=== PATIENT | female | born 2000 | race African-American/Black ===

== ENCOUNTER 2021-10-24 14:24 | Outpatient (CLI) | payer BC ==
[2021-10-25 15:47] LABS: SARS-CoV-2 PCR by NAA Not Detected (NotDetected)
== END 2021-10-24 14:25 | disposition home or self-care (01) ==
LOC: CSHLAB 14:24
PROVIDERS: ATTEND Obstetrics & Gynecology
DX: Z20.822 Contact with and (suspected) exposure to COVID-19 (principal)
CPT/HCPCS: U0003; U0005

== ENCOUNTER 2021-10-26 08:13 | Day surgery (SDC) | payer BC ==
[2021-10-26] MEDS ORDERED: Iron Sucrose Complex 500 MG in Sodium Chloride 0.9% 250 ML 250 ML IVPB SCH (08:45)
[2021-10-26] MEDS ORDERED: hydrALAZINE 20 MG/ML VIAL SLOW IVP PRN (08:49)
[2021-10-26] MEDS ORDERED: Acetaminophen 500 MG TAB PO SCH (09:00)
[2021-10-26] MEDS ORDERED: diphenhydrAMINE 50 MG/ML VIAL IVP SCH (09:00)
[2021-10-26 09:02] VITALS: BMI 34.0
[2021-10-26] MEDS ORDERED: Sodium Chloride 0.9% 1,000 ML IV SCH (10:15)
== END 2021-10-26 15:00 | disposition home or self-care (01) ==
LOC: CSHLD/OP 08:13
PROVIDERS: ATTEND Emergency Medicine
DX: O99.013 Anemia complicating pregnancy, third trimester (principal); D50.9 Iron deficiency anemia, unspecified; O99.343 Other mental disorders complicating pregnancy, third trimester; F32.A Depression, unspecified; O34.211 Maternal care for low transverse scar from previous cesarean delivery; Z3A.34 34 weeks gestation of pregnancy
CPT/HCPCS: J1200; J1756; J7050

== ENCOUNTER 2021-11-27 09:18 | Outpatient (CLI) | payer BC ==
[2021-11-27 12:49] LABS: Hemoglobin 11.3 g/dL (12.0-15.5); Mean Corpuscular HGB CONC 32.8 g/dL (32.0-36.0); Mean Corpuscular Hemoglobin 26.2 pg (27.0-33.0); Mean Corpuscular Volume 79.8 fl (81.6-98.3); Mean Platelet Volume 9.3 fl (7.4-10.4); Platelet Count 287 10x3/uL (150-450); RBC Distribution Width 17.7 % (11.5-14.5); Red Blood Cell (RBC) Count 4.31 10x6/uL (3.90-5.03); White Blood Cell (WBC) Count 7.4 10x3/uL (3.5-10.5)
[2021-11-27 13:20] LABS: Hep B Surf Ag Non-Reactive S/CO (NonReactive)
[2021-11-27 13:21] LABS: Syphilis Antibody Nonreactive (Nonreactive); Syphilis Antibody Index 0.05 S/CO (<1.00 Non-Reactive)
[2021-11-27 14:03] LABS: HBSAg Index 0.17 S/CO (0-0.99)
[2021-11-27 20:43] LABS: SARS-CoV-2 PCR by NAA Not Detected (NotDetected)
== END 2021-11-27 09:19 | disposition home or self-care (01) ==
LOC: CSHLAB 09:18
PROVIDERS: ATTEND Family Medicine
DX: Z01.812 Encounter for preprocedural laboratory examination (principal); Z20.822 Contact with and (suspected) exposure to COVID-19
CPT/HCPCS: 85027; 86780; 87340; U0003; U0005

== ENCOUNTER 2021-12-01 07:37 | Inpatient (IN) | payer BC, MEDICAID ==
[2021-12-01] MEDS ORDERED: Ondansetron PF 4 MG/2 ML Vial IVP PRN ×3 (08:08→15:17)
[2021-12-01] MEDS ORDERED: Famotidine/PF 20 mg/2ml Vial SLOW IVP PRN (08:08)
[2021-12-01] MEDS ORDERED: Promethazine HCl 25 MG/ML VIAL IM PRN ×3 (08:08→15:17)
[2021-12-01] MEDS ORDERED: Bicitra 30 ML UDCUP PO PRN (08:08)
[2021-12-01] MEDS ORDERED: hydrALAZINE 20 MG/ML VIAL SLOW IVP PRN ×2 (08:08→15:17)
[2021-12-01] MEDS ORDERED: ceFAZolin 2 GM/Dextrose 50 ML 2 GM in Premix Bag 1 BAG IVPB SCH (08:15)
[2021-12-01] MEDS: Lactated Ringer's 1,000 ML IV SCH ×2 (08:35→08:54)
[2021-12-01 08:37] VITALS: BMI 34.3
[2021-12-01] MEDS ORDERED: Famotidine/PF 20 mg/2ml Vial ONE (08:49)
[2021-12-01] MEDS ORDERED: Ondansetron PF 4 MG/2 ML Vial ONE (09:58)
[2021-12-01] MEDS ORDERED: Morphine PF 10 MG/10 ML VIAL ONE (09:58)
[2021-12-01] MEDS ORDERED: Oxytocin 10 UNITS/ML VIAL ONE (09:59)
[2021-12-01] MEDS ORDERED: Dexamethasone 4 mg/ml Vial ONE (10:27)
[2021-12-01] MEDS ORDERED: NS w/ Oxytocin 30 units 500 ML ONE (13:03)
[2021-12-01] MEDS ORDERED: Promethazine HCl 25 MG SUPP PR PRN (15:13)
[2021-12-01] MEDS ORDERED: Naloxone HCl 0.4 mg/ml Vial IVP PRN ×2 (15:13)
[2021-12-01] MEDS ORDERED: Ondansetron HCl/PF 4 MG/2 ML Vial IVP PRN (15:13)
[2021-12-01] MEDS ORDERED: diphenhydrAMINE 50 MG/ML VIAL IVP PRN (15:13)
[2021-12-01] MEDS ORDERED: Moisturizing Cream (Eucerin) 113 GM JAR TOP PRN (15:13)
[2021-12-01] MEDS ORDERED: Naloxone HCl 0.4 mg/ml Vial IV PRN (15:13)
[2021-12-01] MEDS ORDERED: Meperidine HCl/PF 25 MG/ML VIAL SLOW IVP PRN (15:13)
[2021-12-01] MEDS ORDERED: Fentanyl 100 MCG/2 ML VIAL SLOW IVP PRN (15:13)
[2021-12-01] MEDS ORDERED: Ketorolac Tromethamine 30 MG/ML VIAL IVP SCH (15:15)
[2021-12-01] MEDS ORDERED: Communication Order-Pharmacy FS SCH (15:15)
[2021-12-01] MEDS ORDERED: Methylergonovine 0.2 MG/ML VIAL IM PRN (15:17)
[2021-12-01] MEDS ORDERED: Acetaminophen 325 MG TAB PO PRN (15:17)
[2021-12-01] MEDS ORDERED: diphenhydrAMINE 25 MG CAP PO PRN (15:17)
[2021-12-01] MEDS ORDERED: Misoprostol 200 MCG TAB PR PRN (15:17)
[2021-12-01] MEDS ORDERED: Lanolin Ointment 7 GM TUBE TOP PRN (15:17)
[2021-12-01] MEDS ORDERED: Bisacodyl 10 MG SUPP PR PRN (15:17)
[2021-12-01] MEDS ORDERED: NS w/ Oxytocin 30 units 500 ML IV SCH (15:17)
[2021-12-01] MEDS ORDERED: Simethicone Chewable 80 MG TAB PO PRN (15:17)
[2021-12-01] MEDS ORDERED: Boostrix 0.5 ML (Tdap) VIAL IM ONE (15:17)
[2021-12-01] MEDS: Ketorolac Tromethamine 30 MG/ML VIAL IVP PRN (16:19)
[2021-12-02] MEDS: Ketorolac Tromethamine 30 MG/ML VIAL IVP PRN ×2 (01:23→07:44)
[2021-12-02] MEDS: Docusate 100 MG CAP PO SCH ×3 (01:28→22:04)
[2021-12-02] MEDS: Ferrous Sulfate 325 MG TAB PO SCH ×2 (01:28→10:12)
[2021-12-02 03:46] LABS: #Eosinphils 0.1 10x3/uL (0.0-0.5); #Monocytes 2.1 10x3/uL (0.0-1.1); #Neutrophils 12.3 10x3/uL (1.5-8.4); %Basophils 0.2 % (0.0-2.0); %Eosinophils 0.4 % (0.0-6.0); %Lymphocytes 13.1 % (18.0-47.0); %Monocytes 12.3 % (0.0-10.0); %Neutrophils 73.7 % (40.0-75.0); Hemoglobin 10.6 g/dL (12.0-15.5); Mean Corpuscular HGB CONC 32.9 g/dL (32.0-36.0); Mean Corpuscular Hemoglobin 26.1 pg (27.0-33.0); Mean Corpuscular Volume 79.3 fl (81.6-98.3); Mean Platelet Volume 9.1 fl (7.4-10.4); Platelet Count 302 10x3/uL (150-450); RBC Distribution Width 17.3 % (11.5-14.5); Red Blood Cell (RBC) Count 4.06 10x6/uL (3.90-5.03); White Blood Cell (WBC) Count 16.7 10x3/uL (3.5-10.5)
[2021-12-02] MEDS: HYDROcodone/Acetaminophen 5/325 mg Tablet PO PRN ×4 (06:10→18:13)
[2021-12-02] MEDS: Prenatal Vitamin 1 TAB PO SCH (07:50)
[2021-12-02] MEDS: guaiFENesin ER 600 MG TAB PO SCH ×2 (10:16→22:08)
[2021-12-02] MEDS: Ibuprofen 800 MG TAB PO SCH ×2 (14:18→22:04)
[2021-12-03] MEDS: Ibuprofen 800 MG TAB PO SCH ×2 (05:30→14:16)
[2021-12-03] MEDS: HYDROcodone/Acetaminophen 5/325 mg Tablet PO PRN ×2 (06:58→11:32)
[2021-12-03 08:14] VITALS: BP 118/76; TEMP 98.3
[2021-12-03] MEDS: Ferrous Sulfate 325 MG TAB PO SCH (08:19)
[2021-12-03] MEDS: Docusate 100 MG CAP PO SCH (09:05)
[2021-12-03] MEDS: guaiFENesin ER 600 MG TAB PO SCH (09:05)
[2021-12-03] MEDS: Prenatal Vitamin 1 TAB PO SCH (09:05)
== END 2021-12-03 17:40 | disposition home or self-care (01) | DRG 788 ==
LOC: CSHLD 07:37 → CSHPP 14:09
PROVIDERS: ADMIT Family Medicine; ATTEND Family Medicine
PROC: 10D00Z1 Extraction of Products of Conception, Low, Open Approach (ICD-10-PCS; principal; 2021-12-01)
DX: O34.211 Maternal care for low transverse scar from previous cesarean delivery (principal); O99.72 Diseases of the skin and subcutaneous tissue complicating childbirth; L91.0 Hypertrophic scar; O99.62 Diseases of the digestive system complicating childbirth; K21.9 Gastro-esophageal reflux disease without esophagitis; O99.214 Obesity complicating childbirth; E66.9 Obesity, unspecified; O40.3XX0 Polyhydramnios, third trimester, not applicable or unspecified; O99.02 Anemia complicating childbirth; D64.9 Anemia, unspecified; Z3A.39 39 weeks gestation of pregnancy; Z37.0 Single live birth
CPT/HCPCS: 51702; 86850; 86900; 86901; J0690; J1100; J1885; J2274; J2405; J2590; J7120; S0028

== ENCOUNTER 2023-02-02 15:46 | Emergency (ER) | payer OTHER ==
[2023-02-02 16:31] LABS: #Basophils 0.1 10x3/uL (0.0-0.2); #Eosinphils 0.5 10x3/uL (0.0-0.5); #Monocytes 1.2 10x3/uL (0.0-1.1); #Neutrophils 9.1 10x3/uL (1.5-8.4); %Basophils 0.6 % (0.0-2.0); %Eosinophils 3.4 % (0.0-6.0); %Lymphocytes 19.1 % (18.0-47.0); %Monocytes 8.9 % (0.0-10.0); %Neutrophils 67.8 % (40.0-75.0); Hematocrit 37.7 % (34.9-44.5); Hemoglobin 12.8 g/dL (12.0-15.5); Mean Corpuscular Hemoglobin 27.9 pg (27.0-33.0); Mean Corpuscular Volume 82.3 fl (81.6-98.3); Mean Platelet Volume 9.2 fl (7.4-10.4); Platelet Count 273 10x3/uL (150-450); RBC Distribution Width 14.6 % (11.5-14.5); Red Blood Cell (RBC) Count 4.58 10x6/uL (3.90-5.03); White Blood Cell (WBC) Count 13.4 10x3/uL (3.5-10.5)
[2023-02-02 16:44] LABS: ALT (SGPT) 8 U/L (8-55); AST (SGOT) 17 U/L (5-34); Alkaline Phosphatase 63 U/L (40-110); Anion Gap 16 mmol/L (10-20); BUN (Urea Nitrogen) 6 mg/dL (7.0-18.7); Bilirubin, Total 0.5 mg/dL (0.2-1.2); Calc. Creatinine Clearance 0 mL/min (70-130); Carbon Dioxide 19 mmol/L (22-29); Chloride 105 mmol/L (98-107); Estimated GFR 124; Globulin 2.9 g/dL (2.4-3.5); Glucose 82 mg/dL (70-105); Magnesium 1.8 mg/dL (1.6-2.6); Potassium 3.9 mmol/L (3.5-5.1); Protein, Total 6.9 g/dL (6.0-8.3); Sodium 136 mmol/L (136-145)
[2023-02-02 17:36] LABS: Bilirubin Neg (Negative); Blood, Urine Negative (Negative); Clarity Clear (Clear); Glucose, Urine (Dipstick) Normal (Negative); Ketone, Urine 150 mg/dL (Negative); Leukocyte 25 (Negative); Nitrite Negative (Negative); Protein, Urine (Dipstick) 30 mg/dl (Neg-Trace); Specific Gravity, Urine 1.025 (1.005-1.030)
[2023-02-02 18:06] LABS: Bacteria/HPF 1+ HPF (None Seen); CAUTI Indications for Culture Pregnancy; RBC/HPF None Seen HPF (0-3); WBC/HPF 0-3 HPF (0-3)
[2023-02-02 18:07] LABS: Mucous/LPF 4+ LPF (<2+)
[2023-02-02 18:08] LABS: Urine Culture Reflex Yes Yes
[2023-02-02] MEDS ORDERED: Ondansetron PF 4 MG/2 ML Vial ONE (20:48)
[2023-02-02] MEDS ORDERED: Acetaminophen 500 MG TAB ONE (21:14)
== END 2023-02-02 22:26 | disposition home or self-care (01) ==
LOC: CSHERS 15:46
DX: O21.9 Vomiting of pregnancy, unspecified (principal); Z3A.10 10 weeks gestation of pregnancy
CPT/HCPCS: 80053; 81001; 82010; 83735; 85025; 87086; 96361; 96374; J2405

== ENCOUNTER 2023-02-23 01:12 | Emergency (ER) | payer OTHER ==
[2023-02-23] MEDS ORDERED: Ondansetron PF 4 MG/2 ML Vial ONE (02:35)
[2023-02-23 02:58] LABS: #Basophils 0.1 10x3/uL (0.0-0.2); #Eosinphils 0.3 10x3/uL (0.0-0.5); %Basophils 0.5 % (0.0-2.0); %Lymphocytes 25.5 % (18.0-47.0); %Monocytes 7.8 % (0.0-10.0); Hematocrit 41.2 % (34.9-44.5); Mean Corpuscular Hemoglobin 28.1 pg (27.0-33.0); Mean Corpuscular Volume 82.6 fl (81.6-98.3); Mean Platelet Volume 9.2 fl (7.4-10.4); Platelet Count 297 10x3/uL (150-450); RBC Distribution Width 14.4 % (11.5-14.5); Red Blood Cell (RBC) Count 4.99 10x6/uL (3.90-5.03); White Blood Cell (WBC) Count 12.5 10x3/uL (3.5-10.5)
[2023-02-23 03:12] LABS: ALT (SGPT) 11 U/L (8-55); AST (SGOT) 15 U/L (5-34); Albumin 4.1 g/dL (3.5-5.0); Alkaline Phosphatase 64 U/L (40-110); Anion Gap 14 mmol/L (10-20); BUN (Urea Nitrogen) 5 mg/dL (7.0-18.7); Bilirubin, Total 0.5 mg/dL (0.2-1.2); Calc. Creatinine Clearance 0 mL/min (70-130); Calcium 9.5 mg/dL (7.8-10.44); Carbon Dioxide 21 mmol/L (22-29); Chloride 104 mmol/L (98-107); Estimated GFR 122; Globulin 3.4 g/dL (2.4-3.5); Glucose 82 mg/dL (70-105); Lipase 11 U/L (8-78); Potassium 3.4 mmol/L (3.5-5.1); Protein, Total 7.5 g/dL (6.0-8.3); Sodium 136 mmol/L (136-145)
[2023-02-23 03:38] LABS: Bilirubin Neg (Negative); Blood, Urine 10 (Negative); Clarity Slightly Cloudy (Clear); Glucose, Urine (Dipstick) Normal (Negative); Ketone, Urine 150 mg/dL (Negative); Leukocyte 100 (Negative); Nitrite Negative (Negative); Protein, Urine (Dipstick) 30 mg/dl (Neg-Trace); Specific Gravity, Urine 1.025 (1.005-1.030)
[2023-02-23 03:48] LABS: Bacteria/HPF Rare-Few HPF (None Seen); CAUTI Indications for Culture Pregnancy; Mucous/LPF 1+ LPF (<2+); RBC/HPF 0-3 HPF (0-3); Squamous Epithelial 0-3 HPF (0-3)
[2023-02-23 03:49] LABS: Urine Culture Reflex Yes Yes
[2023-02-23] MEDS ORDERED: Acetaminophen 500 MG TAB ONE (04:23)
== END 2023-02-23 05:10 | disposition home or self-care (01) ==
LOC: CSHERS 01:12
DX: O21.9 Vomiting of pregnancy, unspecified (principal); Z3A.13 13 weeks gestation of pregnancy
CPT/HCPCS: 80053; 81001; 83690; 85025; 87086; 96374; J2405

== ENCOUNTER 2023-04-26 18:11 | Observation (INO) | payer BC, OTHER ==
[2023-04-26 20:21] VITALS: BMI 33.5
[2023-04-26] MEDS ORDERED: Promethazine HCl 25 MG/ML VIAL IM PRN (21:19)
[2023-04-26] MEDS ORDERED: hydrALAZINE 20 MG/ML VIAL SLOW IVP PRN (21:19)
[2023-04-26] MEDS ORDERED: Ondansetron PF 4 MG/2 ML Vial IVP PRN (21:19)
[2023-04-26] MEDS: Dextrose 5%-Lactated Ringers 1,000 ML IV SCH (22:10)
[2023-04-27 01:35] LABS: Bilirubin Neg (Negative); Blood, Urine Negative (Negative); Clarity Clear (Clear); Glucose, Urine (Dipstick) Normal (Negative); Ketone, Urine Negative (Negative); Leukocyte 25 (Negative); Nitrite Negative (Negative); Protein, Urine (Dipstick) 15 mg/dl (Neg-Trace)
[2023-04-27 01:52] LABS: Bacteria/HPF Rare-Few HPF (None Seen); RBC/HPF None Seen HPF (0-3); Squamous Epithelial 0-3 HPF (0-3)
[2023-04-27 03:48] LABS: #Basophils 0.1 10x3/uL (0.0-0.2); #Eosinphils 0.2 10x3/uL (0.0-0.5); #Monocytes 1.1 10x3/uL (0.0-1.1); %Basophils 0.7 % (0.0-2.0); %Eosinophils 2.2 % (0.0-6.0); %Lymphocytes 26.7 % (18.0-47.0); %Monocytes 12.3 % (0.0-10.0); %Neutrophils 57.4 % (40.0-75.0); Hemoglobin 11.9 g/dL (12.0-15.5); Mean Corpuscular Hemoglobin 28.1 pg (27.0-33.0); Mean Corpuscular Volume 82.5 fl (81.6-98.3); Platelet Count 302 10x3/uL (150-450); RBC Distribution Width 13.8 % (11.5-14.5); Red Blood Cell (RBC) Count 4.24 10x6/uL (3.90-5.03); White Blood Cell (WBC) Count 8.6 10x3/uL (3.5-10.5)
[2023-04-27] MEDS ORDERED: Acetaminophen 325 MG TAB PO PRN (03:54)
[2023-04-27 04:25] LABS: ALT (SGPT) Less than 7 U/L (8-55); AST (SGOT) 10 U/L (5-34); Albumin 2.8 g/dL (3.5-5.0); Alkaline Phosphatase 77 U/L (40-110); Anion Gap 12 mmol/L (10-20); BUN (Urea Nitrogen) 5 mg/dL (7.0-18.7); Bilirubin, Total 0.2 mg/dL (0.2-1.2); Calc. Creatinine Clearance 206 mL/min (70-130); Calcium 8.3 mg/dL (7.8-10.44); Carbon Dioxide 22 mmol/L (22-29); Chloride 105 mmol/L (98-107); Estimated GFR 130; Glucose 81 mg/dL (70-105); Potassium 3.4 mmol/L (3.5-5.1); Protein, Total 5.8 g/dL (6.0-8.3); Sodium 136 mmol/L (136-145)
[2023-04-27] MEDS: Dextrose 5%-Lactated Ringers 1,000 ML IV SCH (05:41)
[2023-04-27] MEDS ORDERED: Prenatal Vitamin 1 TAB PO SCH (09:00)
[2023-04-27 11:18] VITALS: BP 93/53; TEMP 98.4
[2023-04-27] MEDS ORDERED: Ondansetron ODT 4 MG TAB PO SCH (12:00)
[2023-04-27] MEDS ORDERED: Promethazine 25 MG TAB PO PRN (12:02)
[2023-04-27] MEDS ORDERED: Calcium Carbonate 500 MG ChewTAB PO PRN (12:12)
[2023-04-27] MEDS ORDERED: Calcium Carbonate 500 MG ChewTAB PO SCH (12:15)
[2023-04-27] MEDS ORDERED: Famotidine 20 MG TAB PO SCH (12:15)
== END 2023-04-27 17:12 | disposition home or self-care (01) ==
LOC: CSHANTE 19:24
PROVIDERS: ADMIT Family Medicine; ATTEND Family Medicine
DX: O26.12 Low weight gain in pregnancy, second trimester (principal); Z3A.22 22 weeks gestation of pregnancy; Z87.59 Personal history of other complications of pregnancy, childbirth and the puerperium
CPT/HCPCS: 36415; 80053; 81001; 85025; 96374; G0378; J2405; Q0162

== ENCOUNTER 2023-05-01 18:10 | Day surgery (SDC) | payer BC, OTHER ==
[2023-05-01] MEDS ORDERED: hydrALAZINE 20 MG/ML VIAL SLOW IVP PRN (19:11)
[2023-05-03 12:51] LABS: Chlamydia by PCR, Vaginal Swab *Indeterminate (NotDetected); GC by PCR, Vaginal Swab *Indeterminate (NotDetected)
== END 2023-05-01 22:50 | disposition home or self-care (01) ==
LOC: CSHLD/OP 18:10
PROVIDERS: ATTEND Student in an Organized Health Care Education/Training Program
DX: O26.852 Spotting complicating pregnancy, second trimester (principal); Z87.59 Personal history of other complications of pregnancy, childbirth and the puerperium; Z79.899 Other long term (current) drug therapy; Z3A.23 23 weeks gestation of pregnancy
CPT/HCPCS: 87480; 87491; 87510; 87591; 87660; 99284

== ENCOUNTER 2023-07-27 15:30 | Observation (INO) | payer BC, OTHER ==
[2023-07-27] MEDS ORDERED: hydrALAZINE 20 MG/ML VIAL SLOW IVP PRN (16:06)
[2023-07-27] MEDS ORDERED: Lactated Ringer's 1,000 ML IV SCH ×3 (16:15→18:00)
[2023-07-27 16:22] VITALS: BMI 33.6
[2023-07-27 16:40] LABS: #Eosinphils 0.1 10x3/uL (0.0-0.5); #Monocytes 0.9 10x3/uL (0.0-1.1); #Neutrophils 10.1 10x3/uL (1.5-8.4); %Basophils 0.2 % (0.0-2.0); %Eosinophils 0.9 % (0.0-6.0); %Lymphocytes 10.8 % (18.0-47.0); %Monocytes 7.2 % (0.0-10.0); %Neutrophils 80.5 % (40.0-75.0); Hematocrit 35.6 % (34.9-44.5); Hemoglobin 11.8 g/dL (12.0-15.5); Mean Corpuscular HGB CONC 33.1 g/dL (32.0-36.0); Mean Corpuscular Hemoglobin 26.6 pg (27.0-33.0); Mean Corpuscular Volume 80.4 fl (81.6-98.3); Mean Platelet Volume 10.4 fl (7.4-10.4); Platelet Count 247 10x3/uL (150-450); Red Blood Cell (RBC) Count 4.43 10x6/uL (3.90-5.03); White Blood Cell (WBC) Count 12.6 10x3/uL (3.5-10.5)
[2023-07-27 16:47] LABS: ALT (SGPT) 7 U/L (8-55); AST (SGOT) 13 U/L (5-34); Albumin 3.1 g/dL (3.5-5.0); Alkaline Phosphatase 161 U/L (40-110); Anion Gap 13 mmol/L (10-20); BUN (Urea Nitrogen) 6 mg/dL (7.0-18.7); Bilirubin, Total 0.5 mg/dL (0.2-1.2); Calc. Creatinine Clearance 182 mL/min (70-130); Calcium 8.3 mg/dL (7.8-10.44); Carbon Dioxide 20 mmol/L (22-29); Chloride 109 mmol/L (98-107); Estimated GFR 126; Globulin 2.8 g/dL (2.4-3.5); Glucose 68 mg/dL (70-105); Protein, Total 5.9 g/dL (6.0-8.3); Sodium 138 mmol/L (136-145)
[2023-07-27] MEDS ORDERED: Ondansetron ODT 4 MG TAB PO SCH (17:00)
[2023-07-27] MEDS ORDERED: Promethazine HCl 25 MG/ML VIAL IM SCH (18:00)
[2023-07-27] MEDS ORDERED: Promethazine 25 MG TAB PO SCH (18:00)
[2023-07-27 20:01] LABS: Bilirubin Neg (Negative); Blood, Urine Negative (Negative); Clarity Clear (Clear); Glucose, Urine (Dipstick) Normal (Negative); Ketone, Urine 150 mg/dL (Negative); Leukocyte Negative (Negative); Nitrite Negative (Negative); Protein, Urine (Dipstick) Negative (Neg-Trace); Urobilinogen Normal mg/dL (Less than 2)
[2023-07-27] MEDS: Metoclopramide HCl 10 MG (2 mL) VIAL IVP PRN (20:14)
[2023-07-27] MEDS: Ondansetron PF 4 MG/2 ML Vial IVP PRN (20:16)
[2023-07-27 20:21] LABS: Bacteria/HPF None Seen HPF (None Seen); CAUTI Indications for Culture Pregnancy; RBC/HPF None Seen HPF (0-3); Squamous Epithelial 0-3 HPF (0-3); WBC/HPF 0-3 HPF (0-3)
[2023-07-27 20:22] LABS: Urine Culture Reflex Yes Yes
[2023-07-27] MEDS ORDERED: Calcium Carbonate 500 MG ChewTAB PO PRN (23:23)
[2023-07-28] MEDS: Lactated Ringer's 1,000 ML IV SCH ×3 (00:21→11:05)
[2023-07-28 11:29] VITALS: BP 115/67; TEMP 98.3
[2023-07-28] MEDS: Ondansetron PF 4 MG/2 ML Vial IVP PRN (11:32)
[2023-07-28] MEDS: Metoclopramide HCl 10 MG (2 mL) VIAL IVP PRN (11:32)
[2023-07-28 15:09] LABS: SARS-CoV-2 NAA Rapid Test Not Detected (NotDetected)
== END 2023-07-28 15:54 | disposition home or self-care (01) ==
LOC: CSHLD/OP 15:30 → CSHLD 21:13 → INTOOBSV 21:13 → CSHANTE 22:40
PROVIDERS: ADMIT Student in an Organized Health Care Education/Training Program; ATTEND Student in an Organized Health Care Education/Training Program
DX: O99.283 Endocrine, nutritional and metabolic diseases complicating pregnancy, third trimester (principal); E86.0 Dehydration; E16.2 Hypoglycemia, unspecified; O98.513 Other viral diseases complicating pregnancy, third trimester; A08.4 Viral intestinal infection, unspecified; Z3A.36 36 weeks gestation of pregnancy
CPT/HCPCS: 0241U; 36416; 80053; 81001; 85025; 87070; 87086; 87205; J2405; J2550; J2765; J7120; Q0162

== ENCOUNTER 2023-08-20 10:19 | Inpatient (IN) | payer BC, OTHER ==
[2023-08-19 11:17] LABS: Hematocrit 31.9 % (34.9-44.5); Hemoglobin 10.9 g/dL (12.0-15.5); Mean Corpuscular HGB CONC 34.2 g/dL (32.0-36.0); Mean Corpuscular Hemoglobin 26.6 pg (27.0-33.0); Mean Corpuscular Volume 77.8 fl (81.6-98.3); Platelet Count 249 10x3/uL (150-450); RBC Distribution Width 13.8 % (11.5-14.5); White Blood Cell (WBC) Count 11.4 10x3/uL (3.5-10.5)
[2023-08-19 11:45] LABS: Syphilis Antibody Nonreactive (Nonreactive); Syphilis Antibody Index 0.05 S/CO (<1.00 Non-Reactive)
[2023-08-19 11:46] LABS: HBSAg Index 0.19 S/CO (0-0.99); Hep B Surf Ag Non-Reactive S/CO (NonReactive)
[~2023-08-20 10:19] MED LIST: Bicitra 30 ML UDCUP PO PRN; CEFAZOLIN 2 GM in Sodium Chloride 0.9% 100 ML IVPB SCH; Carboprost 250 MCG/ML AMP IM PRN; Diphenoxylate HCl/Atropine Tablet PO PRN; Famotidine/PF 20 mg/2ml Vial SLOW IVP PRN; Methylergonovine 0.2 MG/ML VIAL IM PRN; Misoprostol 200 MCG TAB PR PRN; Ondansetron PF 4 MG/2 ML Vial IVP PRN; Oxytocin 30 units/NS 500 ML 500 ML IV SCH; Tranexamic Acid 1,000 MG/10 ML VIAL IVP PRN; hydrALAZINE 20 MG/ML VIAL SLOW IVP PRN
[2023-08-20 10:44] VITALS: BMI 36.1
[2023-08-20 12:44] LABS: Analyzer IN Cardio CS NICU; RapidComm Collect By OR NURSE
[2023-08-20 12:46] LABS: Analyzer IN Cardio CS NICU; RapidComm Collect By OR NURSE; pH (Cord, venous) 7.271 (7.250-7.350)
[2023-08-20] MEDS ORDERED: Moisturizing Cream (Eucerin) 113 GM JAR TOP PRN (15:39)
[2023-08-20] MEDS ORDERED: Promethazine HCl 25 MG SUPP PR PRN (15:39)
[2023-08-20] MEDS ORDERED: diphenhydrAMINE 50 MG/ML VIAL IVP PRN (15:39)
[2023-08-20] MEDS ORDERED: Meperidine HCl/PF 25 MG (1 mL) VIAL SLOW IVP PRN (15:39)
[2023-08-20] MEDS ORDERED: Promethazine HCl 25 MG/ML VIAL IM PRN (15:39)
[2023-08-20] MEDS ORDERED: Ondansetron PF 4 MG/2 ML Vial IVP PRN ×3 (15:39→17:41)
[2023-08-20] MEDS ORDERED: Naloxone HCl 0.4 mg/ml Vial IVP PRN ×2 (15:39)
[2023-08-20] MEDS ORDERED: Naloxone HCl 0.4 mg/ml Vial IV PRN (15:39)
[2023-08-20] MEDS ORDERED: Ketorolac Tromethamine 30 MG (1 mL) VIAL IVP SCH (15:45)
[2023-08-20] MEDS ORDERED: Communication Order-Pharmacy FS SCH (15:45)
[2023-08-20] MEDS: fentaNYL 50 mcg/mL 1 mL Vial SLOW IVP PRN (15:52)
[2023-08-20] MEDS ORDERED: diphenhydrAMINE 25 MG CAP PO PRN (17:41)
[2023-08-20] MEDS ORDERED: Lanolin Ointment 7 GM TUBE TOP PRN (17:41)
[2023-08-20] MEDS ORDERED: hydrALAZINE 20 MG/ML VIAL SLOW IVP PRN (17:41)
[2023-08-20] MEDS ORDERED: Bisacodyl 10 MG SUPP PR PRN (17:41)
[2023-08-20] MEDS: Ketorolac Tromethamine 30 MG (1 mL) VIAL IVP PRN (18:28)
[2023-08-20] MEDS: Famotidine/PF 20 mg/2ml Vial ONE (20:18)
[2023-08-20] MEDS: Dexamethasone 4 mg/ml Vial ONE (20:18)
[2023-08-20] MEDS: Oxytocin 10 UNITS/ML VIAL ONE (20:19)
[2023-08-20] MEDS: Ondansetron PF 4 MG/2 ML Vial ONE (20:19)
[2023-08-20] MEDS: Labetalol HCl 100 MG/20 ML VIAL ONE (20:19)
[2023-08-20] MEDS: Ketorolac Tromethamine 30 MG (1 mL) VIAL ONE (20:19)
[2023-08-20] MEDS: Morphine PF 10 MG/10 ML VIAL ONE (20:19)
[2023-08-20] MEDS: fentaNYL 50 mcg/mL 1 mL Vial ONE (20:20)
[2023-08-20 20:56] LABS: #Monocytes 0.5 10x3/uL (0.0-1.1); #Neutrophils 14.2 10x3/uL (1.5-8.4); %Basophils 0.1 % (0.0-2.0); %Lymphocytes 7.9 % (18.0-47.0); %Monocytes 3.2 % (0.0-10.0); %Neutrophils 88.4 % (40.0-75.0); Hematocrit 32.4 % (34.9-44.5); Hemoglobin 10.9 g/dL (12.0-15.5); Mean Corpuscular HGB CONC 33.6 g/dL (32.0-36.0); Mean Corpuscular Hemoglobin 26.1 pg (27.0-33.0); Mean Corpuscular Volume 77.5 fl (81.6-98.3); Mean Platelet Volume 9.8 fl (7.4-10.4); Platelet Count 284 10x3/uL (150-450); RBC Distribution Width 14.1 % (11.5-14.5); Red Blood Cell (RBC) Count 4.18 10x6/uL (3.90-5.03); White Blood Cell (WBC) Count 16.1 10x3/uL (3.5-10.5)
[2023-08-20 21:10] LABS: ALT (SGPT) Less than 7 U/L (8-55); AST (SGOT) 15 U/L (5-34); Albumin 2.9 g/dL (3.5-5.0); Alkaline Phosphatase 202 U/L (40-110); Anion Gap 13 mmol/L (10-20); BUN (Urea Nitrogen) 9 mg/dL (7.0-18.7); Bilirubin, Total 0.4 mg/dL (0.2-1.2); Calc. Creatinine Clearance 169 mL/min (70-130); Calcium 8.5 mg/dL (7.8-10.44); Carbon Dioxide 21 mmol/L (22-29); Chloride 103 mmol/L (98-107); Estimated GFR 114; Globulin 2.9 g/dL (2.4-3.5); Glucose 103 mg/dL (70-105); Potassium 4.6 mmol/L (3.5-5.1); Protein, Total 5.8 g/dL (6.0-8.3); Sodium 132 mmol/L (136-145)
[2023-08-20] MEDS: Docusate 100 MG CAP PO SCH (21:26)
[2023-08-20] MEDS: Ferrous Sulfate 325 MG TAB PO SCH (21:26)
[2023-08-20 22:34] LABS: Creatinine, Urine 254.85 mg/dL (47-110)
[2023-08-20] MEDS: diphenhydrAMINE 50 MG/ML VIAL IVP SCH (23:44)
[2023-08-21] MEDS: HYDROcodone/Acetaminophen 5/325 mg Tablet PO PRN ×2 (05:53→09:59)
[2023-08-21 06:09] LABS: Hematocrit 28.4 % (34.9-44.5); Hemoglobin 9.5 g/dL (12.0-15.5); Mean Corpuscular HGB CONC 33.5 g/dL (32.0-36.0); Mean Corpuscular Hemoglobin 26.1 pg (27.0-33.0); Mean Platelet Volume 10.6 fl (7.4-10.4); Platelet Count 268 10x3/uL (150-450); RBC Distribution Width 13.9 % (11.5-14.5); Red Blood Cell (RBC) Count 3.64 10x6/uL (3.90-5.03); White Blood Cell (WBC) Count 19.3 10x3/uL (3.5-10.5)
[2023-08-21] MEDS: NIFEdipine XL 30 MG ER.TAB PO SCH ×2 (07:55→12:30)
[2023-08-21] MEDS: Prenatal Vitamin 1 TAB PO SCH (07:56)
[2023-08-21] MEDS: Simethicone Chewable 80 MG TAB PO PRN (07:56)
[2023-08-21] MEDS: Boostrix 0.5 ML (Tdap) VIAL (>/=7 yrs of age) IM ONE (10:53)
[2023-08-21] MEDS: Benzocaine/Menthol 1 LOZ LOZ PO PRN (12:54)
[2023-08-21] MEDS: Lidocaine 4% Patch TD SCH (17:09)
[2023-08-21] MEDS: Moisturizing Cream (Eucerin) 113 GM JAR TOP SCH (21:08)
[2023-08-21] MEDS: Ibuprofen 800 MG TAB PO SCH (22:13)
[2023-08-22] MEDS: Transdermal Patch Removal TOP SCH (05:50)
[2023-08-22] MEDS: NIFEdipine XL 30 MG ER.TAB PO SCH (07:48)
[2023-08-22] MEDS ORDERED: Lidocaine 4% Patch TD SCH (09:00)
[2023-08-23 03:54] LABS: Hematocrit 26.9 % (34.9-44.5); Hemoglobin 8.9 g/dL (12.0-15.5); Mean Corpuscular HGB CONC 33.1 g/dL (32.0-36.0); Mean Corpuscular Hemoglobin 26.1 pg (27.0-33.0); Mean Corpuscular Volume 78.9 fl (81.6-98.3); Mean Platelet Volume 9.7 fl (7.4-10.4); Platelet Count 275 10x3/uL (150-450); RBC Distribution Width 14.3 % (11.5-14.5); Red Blood Cell (RBC) Count 3.41 10x6/uL (3.90-5.03)
[2023-08-23 08:08] VITALS: BP 137/86; TEMP 98.4
== END 2023-08-23 15:40 | disposition home or self-care (01) | DRG 788 ==
LOC: CSHLD 10:19 → CSHPP 16:04
PROVIDERS: ADMIT Obstetrics & Gynecology; ATTEND Obstetrics & Gynecology
PROC: 10D00Z1 Extraction of Products of Conception, Low, Open Approach (ICD-10-PCS; principal; 2023-08-20)
DX: O34.211 Maternal care for low transverse scar from previous cesarean delivery (principal); Z3A.39 39 weeks gestation of pregnancy; Z37.0 Single live birth; O99.814 Abnormal glucose complicating childbirth; O99.214 Obesity complicating childbirth; E66.9 Obesity, unspecified; O40.3XX0 Polyhydramnios, third trimester, not applicable or unspecified; O99.02 Anemia complicating childbirth; D56.3 Thalassemia minor; O21.0 Mild hyperemesis gravidarum; Q51.818 Other congenital malformations of uterus; L30.4 Erythema intertrigo; O99.72 Diseases of the skin and subcutaneous tissue complicating childbirth; O99.62 Diseases of the digestive system complicating childbirth; K66.0 Peritoneal adhesions (postprocedural) (postinfection)
CPT/HCPCS: 36415; 36416; 51702; 80053; 82570; 82805; 84156; 85025; 85027; 86780; 86850; 86900; 86901; 87340; J1100; J1200; J1885; J2274; J2405; J2590; J3010; S0028

== ENCOUNTER 2023-08-26 16:08 | Emergency (ER) | payer BC, OTHER ==
[2023-08-26] MEDS ORDERED: HYDROcodone/Acetaminophen 5/325 mg Tablet ONE (17:00)
[2023-08-26] MEDS ORDERED: Ketorolac Tromethamine 30 MG (1 mL) VIAL ONE (17:01)
== END 2023-08-26 18:15 | disposition home or self-care (01) ==
LOC: CSHERS 16:08
DX: O90.0 Disruption of cesarean delivery wound (principal); M54.50 Low back pain, unspecified
CPT/HCPCS: 96372; 99283; J1885

== ENCOUNTER 2024-04-12 04:49 | Emergency (ER) | payer BC ==
[2024-04-12] MEDS ORDERED: Acetaminophen 500 MG TAB ONE (05:20)
[2024-04-12 06:16] LABS: #Basophils 0.07 10x3/uL (0.0-0.2); #Eosinophils 0.32 10x3/uL (0.0-0.5); #Monocytes 0.81 10x3/uL (0.0-1.1); #Neutrophils 5.56 10x3/uL (1.5-8.4); %Basophils 0.7 % (0.0-2.0); %Eosinophils 3.4 % (0.0-6.0); %Lymphocytes 28.9 % (18.0-47.0); %Monocytes 8.5 % (0.0-10.0); %Neutrophils 58.3 % (40.0-75.0); Hematocrit 38.5 % (34.9-44.5); Hemoglobin 12.4 g/dL (12.0-15.5); Mean Corpuscular HGB CONC 32.2 g/dL (32.0-36.0); Mean Corpuscular Hemoglobin 26.4 pg (27.0-33.0); Mean Corpuscular Volume 81.9 fL (81.6-98.3); Platelet Count 292 10x3/uL (150-450); RBC Distribution Width 15.6 % (11.5-14.5); White Blood Cell (WBC) Count 9.5 10x3/uL (3.5-10.5)
[2024-04-12 06:31] LABS: Anion Gap 16 mmol/L (10-20); BUN (Urea Nitrogen) 9 mg/dL (7.0-18.7); Calc. Creatinine Clearance 0 mL/min (70-130); Calcium 9.4 mg/dL (7.8-10.44); Carbon Dioxide 19 mmol/L (22-29); Chloride 109 mmol/L (98-107); Estimated GFR 111; Glucose 96 mg/dL (70-105); Potassium 3.8 mmol/L (3.5-5.1); Sodium 140 mmol/L (136-145)
== END 2024-04-12 07:03 | disposition home or self-care (01) ==
LOC: CSHERS 04:49
DX: O03.9 Complete or unspecified spontaneous abortion without complication (principal); Z3A.01 Less than 8 weeks gestation of pregnancy
CPT/HCPCS: 36415; 76856; 80048; 84702; 85025; 86900; 86901

== ENCOUNTER 2024-08-08 09:05 | Day surgery (SDC) | payer BC ==
[2024-08-07 15:27] VITALS: BMI 35.4
[2024-08-08] MEDS ORDERED: Doxycycline 100 MG CAP PO SCH (10:00)
[2024-08-08] MEDS ORDERED: Azithromycin 1,000 MG in Sodium Chloride 0.9% 500 ML IVPB SCH (10:15)
[2024-08-08] MEDS ORDERED: Misoprostol 200 MCG TAB ONE (10:27)
[2024-08-08] MEDS ORDERED: Methylergonovine 0.2 MG/ML VIAL ONE (10:28)
[2024-08-08] MEDS ORDERED: Tranexamic Acid 1,000 MG/10 ML VIAL ONE (10:28)
[2024-08-08 10:36] LABS: #Basophils 0.06 10x3/uL (0.0-0.2); #Eosinophils 0.33 10x3/uL (0.0-0.5); #Monocytes 0.88 10x3/uL (0.0-1.1); #Neutrophils 6.59 10x3/uL (1.5-8.4); %Basophils 0.6 % (0.0-2.0); %Eosinophils 3.2 % (0.0-6.0); %Lymphocytes 24.2 % (18.0-47.0); %Monocytes 8.5 % (0.0-10.0); %Neutrophils 63.2 % (40.0-75.0); Hematocrit 39.3 % (34.9-44.5); Hemoglobin 12.3 g/dL (12.0-15.5); Mean Corpuscular HGB CONC 31.3 g/dL (32.0-36.0); Mean Corpuscular Volume 83.1 fL (81.6-98.3); Mean Platelet Volume 8.6 fL (7.4-10.4); Platelet Count 384 10x3/uL (150-450); RBC Distribution Width 15.6 % (11.5-14.5); Red Blood Cell (RBC) Count 4.73 10x6/uL (3.90-5.03); White Blood Cell (WBC) Count 10.41 10x3/uL (3.5-10.5)
[2024-08-08] MEDS ORDERED: Ondansetron PF 4 MG/2 ML Vial ONE (10:36)
[2024-08-08] MEDS ORDERED: Lidocaine 2% PF 5 ML VIAL ONE (10:36)
[2024-08-08] MEDS ORDERED: Dexamethasone 4 mg/ml Vial ONE (10:36)
[2024-08-08] MEDS ORDERED: PROPOFOL 20 ML ONE (10:36)
[2024-08-08] MEDS ORDERED: Midazolam HCl 2 mg/2 ml Vial ONE (10:44)
[2024-08-08] MEDS ORDERED: Fentanyl 100 MCG/2 ML VIAL ONE (11:02)
[2024-08-08] MEDS ORDERED: PHENYLEPHRINE-NS 100 MCG/ML 10 ML SYRINGE ONE (11:20)
[2024-08-08] MEDS ORDERED: Ketorolac Tromethamine 30 MG (1 mL) VIAL ONE (11:31)
[2024-08-08] MEDS ORDERED: Ibuprofen 400 MG TAB PO PRN (11:40)
[2024-08-08] MEDS ORDERED: Acetaminophen 325 MG (10.15 ML) UDCUP PO PRN (11:40)
[2024-08-08] MEDS ORDERED: Ondansetron PF 4 MG/2 ML Vial IVP PRN (11:40)
[2024-08-08] MEDS ORDERED: Lactated Ringer's 1,000 ML IV SCH (11:45)
[2024-08-08] MEDS ORDERED: Misoprostol 200 MCG TAB PO SCH (13:00)
[2024-08-08] MEDS ORDERED: HYDROcodone/Acetaminophen 5/325 mg Tablet ONE (13:08)
== END 2024-08-08 14:45 | disposition home or self-care (01) ==
LOC: CSHSDC 09:05
PROVIDERS: ATTEND Obstetrics & Gynecology
PROC: 10D17ZZ Extraction of Products of Conception, Retained, Via Natural or Artificial Opening (ICD-10-PCS; principal; 2024-08-08)
DX: O02.0 Blighted ovum and nonhydatidiform mole (principal); O09.40 Supervision of pregnancy with grand multiparity, unspecified trimester; Z3A.00 Weeks of gestation of pregnancy not specified
CPT/HCPCS: 36415; 85025; 86900; 86901; 88305; J0456; J1100; J1885; J2210; J2250; J2405; J2704; J3010; J7030

== ENCOUNTER 2025-02-06 23:19 | Emergency (ER) | payer BC ==
[2025-02-06 23:49] LABS: Glucose, Urine (Dipstick) Normal (Negative); Leukocyte 25 (Negative); Protein, Urine (Dipstick) 15 mg/dl (Neg-Trace); Specific Gravity, Urine 1.015 (1.005-1.030)
[2025-02-06 23:58] LABS: RBC/HPF 0-3 HPF (0-3)
[2025-02-06 23:59] LABS: Bacteria/HPF 1+ HPF (None Seen); CAUTI Indications for Culture Pregnancy; WBC/HPF 0-3 HPF (0-3)
[2025-02-07] LABS: Urine Culture Reflex Yes Yes
== END 2025-02-07 02:13 | disposition home or self-care (01) ==
LOC: CSHERS 23:19
DX: O20.0 Threatened abortion (principal); Z3A.10 10 weeks gestation of pregnancy
CPT/HCPCS: 76801; 76856; 81001; 84702; 87086; 93976